=== PATIENT | female | born 1975 | race Caucasian/White ===

== ENCOUNTER 2017-08-20 08:10 | Emergency (ER) | payer OTHER ==
[2017-08-20 08:28] VITALS: BP 141/95; BMI 32.3
--- NOTE | 2017-08-20 09:13 | DR.GENAD ---
HPI - PCP Primary Care Physician: nfd - Complaint/Symptoms Chief Complaint Doctors Comments: Patient gives a history of migraine headache her pcp call in a prescription for migraine on yesterday but she has note been able to keep anything down. She admits to post traumatic headache due to head trauma several years ago. Chief Complaint:: patient stated she has had a headache for a week and then she started vomiting last night and she cant hold her meds down. - Source History Provided: Patient - Mode of Arrival Mode of Arrival: Ambulatory - Timing Onset of Chief Complaint: 08/13/17 PMH - PMH Past Medical History: No Past Surgical History: Yes Surgical History: , Hysterectomy - Family History History of Family Medical Conditions: No - Social History Does patient currently use any type of tobacco product: Yes Have you used tobacco products in the last 12 months: Yes Type of Tobacco Use: Cigarettes How many years tobacco product used: 20 Does any household member use tobacco: Yes Alcohol Use: None Do you use any recreational Drugs:: No Lives With: Family Lives Where: Home - infectious screening In the last 2 months have you had wt loss of >10#?: NO Have you had fever, night sweats or hemotysis?: No Have you traveled outside the country in the last 6 months?: No Isolation: Standard ROS - Review of Systems Constitutional: No Symptoms Reported Eyes: No Symptoms Reported ENTM: No Symptoms Reported Respiratoy: No Symptoms Reported Cardiovascular: No Symptoms Reported Gastrointestinal/Abdominal: Vomiting Genitourinary: No Symptoms Reported Neurological: No Symptoms Reported Musculoskeletal: No Symptoms Reported Integumentary: No Symptoms Reported Hematologic/Lymphatic: No Symptoms Reported Endocrine: No Symptoms Reported Psychiatric: No Symptoms Reported All Other Systems: Reviewed and Negative PE - Vital Signs Vitals: Temperature 98.9 F Pulse Rate 102 Respiratory Rate 18 Blood Pressure 141/95 O2 Sat by Pulse Oximetry 97 - General Limitations: No Limitations General Appearance: Alert, Anxious - Head Head Exam: Normal Inspection, Atraumatic - Eyes Eye exam: Normal Appearance, PERRL, EOMI - ENT ENT Exam: Normal Exam, Mucous Membranes Dry External Ear Exam: Normal External Inspection TM/Canal Exam: Bilateral Normal Nose Exam: Normal Nose Exam Mouth Exam: Normal Inspection Throat Exam: Normal Inspection - Neck Neck Exam: Normal Inspection, Full ROM - Chest Chest Inspection: Normal Inspection - Respiratory Respiratory Exam: Normal Lung Sounds Bilat Respiratory Exam: Bilateral Clear to Auscultation - Cardiovascular Cardiovascular Exam: Regular Rate, Normal Rhythm - Abdominal Exam Abdominal Exam: Normal Inspection, Normal Bowel Sounds Abdominal Tenderness: negative: RUQ, RLQ, LUQ, LLQ, Epigastrium, Suprapubic, Diffuse, Mild, Moderate, Severe, Other - Extremities Extremities Exam: Normal Inspection, Full ROM - Back Back Exam: Normal Inspection, Full ROM - Neurologic Neurological Exam: Alert, Oriented X3, CN II-XII Intact - Psychiatric Psychiatric Exam: Normal Affect - Skin Skin Exam: Warm, Dry, Intact Course - Treatment Treatment: Antiemetics, NS, analgesic - Reevaluation 1st: Improved ROR - Labs Reviewed Laboratory Results Reviewed?: Yes (UA negative) Result Diagrams: 08/20/17 09:23 08/20/17 09: Laboratory: WBC 11.9 X10^3/uL (3.6-10.0) H 08/20/17 09: RBC 4.87 X10^6/uL (3.5-5.4) 08/20/17 09: Hgb 13.9 g/dL (12.0-16.0) 08/20/17 09: Hct 40.0 % (36.0-47.0) 08/20/17 09: MCV 82.3 fL (80.0-100.0) 08/20/17 09:23 MCH 28.5 pg (27.0-34.0) 08/20/17 09: MCHC 34.6 g/dL (33.0-35.0) 08/20/17 09: RDW 13.4 % (11.6-16.5) 08/20/17 09: Plt Count 303 X10^3/uL (150.0-450.0) 08/20/17 09: MPV 7.4 fL (7.4-11.0) 08/20/17 09: Neut % 77.0 % (42.0-75.0) H 08/20/17 09:23 Lymph % 19.1 % (21.0-51.0) L 08/20/17 09:23 [place] % 3.4 % (0.0-13.0) 08/20/17 09: Eos % 0.0 % (0.9-2.9) L 08/20/17 09:23 Baso % 0.5 % (0.2-1.0) 08/20/17 09: Neut # 9.2 x10^3/uL (2.2-4.8) H 08/20/17 09:23 Lymph # 2.3 X10^3/uL (1.3-2.9) 08/20/17 09:23 [place] # 0.4 x10^3/uL (0.3-0.8) 08/20/17 09:23 Eos # 0.0 x10^3/uL (0.0-0.2) 08/20/17 09: Baso # 0.1 X10^3/uL (0.0-0.1) 08/20/17 09:23 Absolute Nucleated RBC 0.0 /100WBC 08/20/17 09:23 Sodium 140 mmol/L (136-145) 08/20/17 09:23 Corrected Sodium 141 mmol/L (136-145) 08/20/17 09:23 Potassium 3.9 mmol/L (3.5-5.1) 08/20/17 09:23 Chloride 103 mmol/L (98-107) 08/20/17 09:23 Carbon Dioxide 24.4 mmol/L (21-32) 08/20/17 09:23 BUN 12 mg/dL (7-18) 08/20/17 09:23 Creatinine 0.81 mg/dL (0.55-1.02) 08/20/17 09:23 Est GFR (MDRD) Af Amer > 60 (>60) 08/20/17 09:23 Est GFR (MDRD) Non-Af > 60 (>60) 08/20/17 09:23 Glucose 121 mg/dL (65-99) H 08/20/17 09:23 Calcium 9.3 mg/dL (8.5-10.1) 08/20/17 09:23 Corrected Calcium TNP 08/20/17 09:23 Total Bilirubin 0.40 mg/dL (0.2-1.0) 08/20/17 09:23 AST 17 Units/L (15-37) 08/20/17 09:23 ALT 27 Units/L (12-78) 08/20/17 09:23 Alkaline Phosphatase 101 Units/L (46-116) 08/20/17 09:23 C-Reactive Protein 3.40 mg/L (0-3.0) H 08/20/17 09:23 Total Protein 7.9 g/dL (6.4-8.2) 08/20/17 09:23 Albumin 4.0 g/dL (3.4-5.0) 08/20/17 09: Globulin 3.9 g/dL (2.5-4.5) 08/20/17 09:23 Albumin/Globulin Ratio 1.0 Ratio (1.1-2.1) L 08/20/17 09:23 Specimen Type Clean catch urine 08/20/17 11:30 Urine Color Yellow (YELLOW) 08/20/17 11:30 Urine Appearance Hazy (CLEAR) 08/20/17 11:30 Urine pH 7.0 (5.0 - 8.0) 08/20/17 11:30 Ur Specific [place] 1.020 (1.000-1.030) 08/20/17 11:30 Urine Protein 2+ (NEGATIVE) 08/20/17 11:30 Urine Glucose (UA) Negative (NEGATIVE) 08/20/17 11:30 Urine Ketones 2+ (NEGATIVE) 08/20/17 11:30 Urine Occult Blood 1+ (NEGATIVE) 08/20/17 11:30 Urine Nitrite Negative (NEGATIVE) 08/20/17 11:30 Urine Bilirubin Negative (NEGATIVE) 08/20/17 11:30 Urine Urobilinogen Normal (NORMAL) 08/20/17 11:30 Ur Leukocyte Esterase Negative (NEGATIVE) 08/20/17 11:30 Urine RBC 0 /HPF (NEGATIVE) 08/20/17 11:30 Urine WBC 0-3 /HPF (NEGATIVE) 08/20/17 11:30 Ur Squamous Epith Cells Rare /HPF (NEGATIVE) 08/20/17 11:30 Urine Bacteria Trace /HPF (NEGATIVE) 08/20/17 11:30 Urine Mucus Few /HPF (NEGATIVE) 08/20/17 11:30 Ur Culture Indicated? No/not indicated 08/20/17 11:30 Streptococcus Screen Negative (NEGATIVE) 08/20/17 09:39 - Diagnosis Discharge Problem: Viral illness Headache Qualifiers: Headache type: post-traumatic Headache chronicity pattern: chronic headache Intractability: not intractable Qualified Code(s): G44.329 - Chronic post- traumatic headache, not intractable - Discharge Plan Condition: Stable - Follow ups/Referrals Follow ups/Referrals: NFD,None [Primary Care Provider] - 3 days - Instructions
[2017-08-20] MEDS ORDERED: NS 1000 ML 1,000 ML IV ONE ×2 (09:14→11:25)
[2017-08-20] MEDS ORDERED: PHENERGAN INJ 25 MG IV ONE (09:14)
[2017-08-20] MEDS ORDERED: MORPHINE SULFATE INJ 4 MG IVP ONE (09:17)
[2017-08-20] MEDS ORDERED: NS 1000 ML 1,000 ML ONE (09:18)
[2017-08-20] MEDS ORDERED: MORPHINE SULFATE INJ 4 MG ONE (09:19)
[2017-08-20] MEDS ORDERED: PHENERGAN INJ 25 MG ONE (09:19)
[2017-08-20 09:28] LABS: BASOPHILS # (AUTO) 0.1 X10^3/uL (0.0-0.1); BASOPHILS % (AUTO) 0.5 % (0.2-1.0); HEMOGLOBIN 13.9 g/dL (12.0-16.0); LYMPHOCYTES # (AUTO) 2.3 X10^3/uL (1.3-2.9); LYMPHOCYTES % (AUTO) 19.1 % (21.0-51.0); MEAN CORPUSCULAR HEMOGLOBIN 28.5 pg (27.0-34.0); MEAN CORPUSCULAR HGB CONC 34.6 g/dL (33.0-35.0); MEAN CORPUSCULAR VOLUME 82.3 fL (80.0-100.0); MEAN PLATELET VOLUME 7.4 fL (7.4-11.0); MONOCYTES # (AUTO) 0.4 x10^3/uL (0.3-0.8); MONOCYTES % (AUTO) 3.4 % (0.0-13.0); NEUTROPHILS # (AUTO) 9.2 x10^3/uL (2.2-4.8); PLATELET COUNT 303 X10^3/uL (150.0-450.0); RED BLOOD COUNT 4.87 X10^6/uL (3.5-5.4); RED CELL DISTRIBUTION WIDTH 13.4 % (11.6-16.5); WHITE BLOOD COUNT 11.9 X10^3/uL (3.6-10.0)
[2017-08-20 09:39] LABS: ALANINE AMINOTRANSFERASE 27 Units/L (12-78); ALKALINE PHOSPHATASE 101 Units/L (46-116); ASPARTATE AMINO TRANSFERASE 17 Units/L (15-37); BLOOD UREA NITROGEN 12 mg/dL (7-18); CALCIUM 9.3 mg/dL (8.5-10.1); CARBON DIOXIDE 24.4 mmol/L (21-32); CHLORIDE 103 mmol/L (98-107); COR NA(FOR HYPERGLY) 141 mmol/L (136-145); CREATININE 0.81 mg/dL (0.55-1.02); SODIUM 140 mmol/L (136-145); TOTAL PROTEIN 7.9 g/dL (6.4-8.2); eGFR BLACK RACES > 60 (>60); eGFR NON BLACK RACES > 60 (>60)
[2017-08-20] MEDS ORDERED: REGLAN INJ 10 MG VIAL IVP ONE (10:37)
[2017-08-20] MEDS ORDERED: MORPHINE SULFATE INJ 2 MG INJ IVP ONE (10:38)
[2017-08-20] MEDS ORDERED: REGLAN INJ 10 MG VIAL ONE (10:41)
[2017-08-20] MEDS ORDERED: MORPHINE SULFATE INJ 2 MG INJ ONE (10:41)
[2017-08-20 11:37] LABS: BILIRUBIN,URINE NEGATIVE (NEGATIVE); BLOOD/HEMOGLOBIN,URINE 1+ (NEGATIVE); GLUCOSE, URINE NEGATIVE (NEGATIVE); KETONES,URINE 2+ (NEGATIVE); LEUKOCYTE ESTERASE ,URINE NEGATIVE (NEGATIVE); NITRITES,URINE NEGATIVE (NEGATIVE); PROTEIN,URINE 2+ (NEGATIVE); UROBILINOGEN,URINE NORMAL (NORMAL)
[2017-08-20 11:46] LABS: APPEARANCE,URINE HAZY (CLEAR); BACTERIA,URINE TRACE /HPF (NEGATIVE); COLOR,URINE YELLOW (YELLOW); MUCUS,URINE FEW /HPF (NEGATIVE); RBC,URINE 0 /HPF (NEGATIVE); SQUAMOUS EPITHELIAL CELL,UR RARE /HPF (NEGATIVE)
== END 2017-08-20 12:21 | disposition home or self-care (01) ==
LOC: ER 08:18
DX: G44.329 Chronic post-traumatic headache, not intractable (principal); B34.9 Viral infection, unspecified
CPT/HCPCS: 36415; 80053; 81001; 85025; 86140; 87070; 87880; 96365; 96367; 96374; 96375; 99283; A4222; J2270; J2550; J2765

== ENCOUNTER 2017-11-08 09:42 | Emergency (ER) | payer OTHER, MEDICAID ==
[2017-11-08 09:50] VITALS: BP 136/101; BMI 33.2
--- NOTE | 2017-11-08 10:23 | DR.URIAD ---
HPI - Time Seen Time seen: 10:20 - PCP Primary Care Physician: AUDREY Le ROVING HAND - Complaint Chief Complaint Doctors Comments: Patient presents with complaint of sore throat , dysphagia, left otalgia and toothache of two days duration. Chief Complaint:: PT C/O CONGESTION, LEFT EAR PAIN AND LEFT THROAT PAIN TIMES 3 DAYS AND LEFT TOOTH PAIN". Self Treatment fo Chief Complaint: MOTRIN , DAYQUIL. - Source History Provided: Patient - Mode of Arrival Mode of Arrival: Ambulatory - Timing Onset of Chief Complaint: 11/06/17 PMH - PMH Past Medical History: Yes Past Medical History Comment: MENTAL HEALTH, OCD, PTSD, ANXIETY, Past Surgical History: Yes Surgical History: , Cholecystectomy, Hysterectomy - Family History History of Family Medical Conditions: No - Social History Does patient currently use any type of tobacco product: Yes Have you used tobacco products in the last 12 months: Yes Type of Tobacco Use: Cigarettes How many years tobacco product used: 20 Does any household member use tobacco: No Alcohol Use: None Do you use any recreational Drugs:: No Lives With: Alone Lives Where: Home - infectious screening In the last 2 months have you had wt loss of >10#?: NO Have you had fever, night sweats or hemotysis?: No Have you traveled outside the country in the last 6 months?: No Isolation: Standard ROS - Review of Systems Eyes: No Symptoms Reported ENTM: No Symptoms Reported Respiratoy: No Symptoms Reported Cardiovascular: No Symptoms Reported Gastrointestinal/Abdominal: No Symptoms Reported Genitourinary: No Symptoms Reported Neurological: No Symptoms Reported Musculoskeletal: No Symptoms Reported Integumentary: No Symptoms Reported Hematologic/Lymphatic: No Symptoms Reported Endocrine: No Symptoms Reported Psychiatric: No Symptoms Reported All Other Systems: Reviewed and Negative PE - Vital Signs Vitals: Temperature 97.1 F Pulse Rate 73 Respiratory Rate 18 Blood Pressure 136/101 O2 Sat by Pulse Oximetry 98 - General General Appearance: Alert, In No Apparent Distress - Head Head Exam: Normal Inspection - Eyes Eye exam: Normal Appearance, PERRL, EOMI - ENT ENT Exam: Normal Exam, Normal Oropharynx, TM's Normal Bilaterally (right canal erythematous, TM red) External Ear Exam: Normal External Inspection TM/Canal Exam: Bilateral Normal Nose Exam: Normal Nose Exam Nasal Speculum Exam: Bilateral Normal Mouth Exam: Normal Inspection Throat Exam: Normal Inspection. negative: Muffled Voice - Neck Neck Exam: Normal Inspection, Full ROM, Tenderness (left anter cervical at angle of jaw) - Chest Chest Inspection: Symmetric Chest Wall Rise - Respiratory Respiratory Exam: Normal Lung Sounds Bilat Respiratory Exam: Bilateral Clear to Auscultation - Cardiovascular Cardiovascular Exam: Regular Rate, Normal Rhythm - Abdominal Exam Abdominal Exam: Normal Inspection, Normal Bowel Sounds Abdominal Tenderness: negative: RUQ, RLQ, LUQ, LLQ, Epigastrium, Suprapubic, Diffuse, Mild, Moderate, Severe, Other - Extremeties Extremities Exam: Normal Inspection, Full ROM - Back Back Exam: Normal Inspection, Full ROM - Neurologic Neurological Exam: Alert, Oriented X3, CN II-XII Intact - Psychiatric Psychiatric Exam: Normal Affect, Normal Mood - Skin Skin Exam: Warm, Dry, Intact ROR - Labs Reviewed Laboratory: Streptococcus Screen Negative (NEGATIVE) 11/08/17 10:33 - Diagnosis Discharge Problem: Right otitis media Qualifiers: Otitis media type: suppurative Chronicity: acute Recurrence: not specified as recurrent Spontaneous tympanic membrane rupture: without spontaneous rupture Qualified Code(s): H66.001 - Acute suppurative otitis media without spontaneous rupture of ear drum, right ear Pharyngitis Qualifiers: Pharyngitis/tonsillitis etiology: other specified organisms Qualified Code(s): J02.8 - Acute pharyngitis due to other specified organisms - Discharge Plan Condition: Stable - Follow ups/Referrals Follow ups/Referrals: SUSANA VENTURA [Primary Care Provider] - 3 days - Instructions
== END 2017-11-08 11:23 | disposition home or self-care (01) ==
LOC: ER 09:56
DX: H66.001 Acute suppurative otitis media without spontaneous rupture of ear drum, right ear (principal); J02.8 Acute pharyngitis due to other specified organisms
CPT/HCPCS: 87070; 87077; 87186; 87880; 99282

== ENCOUNTER 2017-11-15 18:13 | Emergency (ER) | payer OTHER, MEDICAID ==
[2017-11-15 18:16] VITALS: BMI 33.3
--- NOTE | 2017-11-15 18:39 | DR.GENAD ---
HPI - PCP Primary Care Physician: AUDREY - HPI Comment HPI Comment: SWELLING, PAIN LATERAL HAND AND SMALL FINGER. PULSES INTACT. - Complaint/Symptoms Chief Complaint Doctors Comments: PUNCH MAIL BOX TONCESIA. Chief Complaint:: PT C/O RT HAND PAIN. PT STATES SHE PUNCHED A MAILBOX APPROX 15 MINS AGO. - Nurses notes reviewed Nurses Notes Review: Yes - Source History Provided: Patient - Mode of Arrival Mode of Arrival: Ambulatory - Timing Onset of Chief Complaint: 11/15/17 Came on: Suddenly - Duration Duration: Constant Duration: Hours - Severity Severity: Moderate PMH - PMH Past Medical History: Yes Past Medical History: Hypertension Past Medical History Comment: MENTAL HEALTH Past Surgical History: Yes Surgical History: , Cholecystectomy, Hysterectomy - Family History History of Family Medical Conditions: No - Social History Does patient currently use any type of tobacco product: Yes Have you used tobacco products in the last 12 months: Yes Type of Tobacco Use: Cigarettes Does any household member use tobacco: Yes Alcohol Use: None Do you use any recreational Drugs:: No Lives With: Family Lives Where: Home - infectious screening In the last 2 months have you had wt loss of >10#?: NO Have you had fever, night sweats or hemotysis?: No Have you traveled outside the country in the last 6 months?: No Isolation: Standard ROS - Review of Systems Constitutional: No Symptoms Reported Eyes: No Symptoms Reported ENTM: No Symptoms Reported Respiratoy: No Symptoms Reported Cardiovascular: No Symptoms Reported Gastrointestinal/Abdominal: No Symptoms Reported Genitourinary: No Symptoms Reported Neurological: No Symptoms Reported Musculoskeletal: Right, Hand Integumentary: Change in Color, Bruises Hematologic/Lymphatic: No Symptoms Reported Endocrine: No Symptoms Reported All Other Systems: Reviewed and Negative PE - Vital Signs Vitals: Temperature 98.0 F Pulse Rate [Left Brachial] 72 Pulse Rate 101 Respiratory Rate 18 Blood Pressure [Left Arm] 138/96 Blood Pressure 147/105 O2 Sat by Pulse Oximetry 99 - General Limitations: No Limitations General Appearance: Alert - Head Head Exam: Normal Inspection - Eyes Eye exam: Normal Appearance - ENT ENT Exam: Normal External Ear Exam External Ear Exam: Normal External Inspection TM/Canal Exam: Bilateral Normal Nose Exam: Normal Nose Exam Mouth Exam: Normal Inspection Throat Exam: Normal Inspection - Neck Neck Exam: Trachea Midline - Chest Chest Inspection: Symmetric Chest Wall Rise - Respiratory Respiratory Exam: Normal Lung Sounds Bilat Respiratory Exam: Bilateral Clear to Auscultation - Cardiovascular Cardiovascular Exam: Regular Rate, Normal Rhythm, Normal Heart Sounds - Abdominal Exam Abdominal Exam: Normal Inspection - Extremities Extremities Exam: Tenderness (RIGHT HAND SWOLLEN AND TENDER LATERAL ASPECT WITH 5TH FINGER.) - Back Back Exam: Normal Inspection - Neurologic Neurological Exam: Alert, Oriented X3 - Psychiatric Psychiatric Exam: Normal Affect, Normal Mood - Skin Skin Exam: Erythema MDM - Differential Diagnosis Differential Diagnosis: CONTUSION, SPRAIN AND FRACTURE RT FINGER. - Diagnosis Discharge Problem: Intermetacarpal ligament injury - Discharge Plan Disposition: 01 HOME, SELF-CARE Condition: Stable Prescriptions: Acetaminophen with Codeine [Tylenol/Codeine #3 300-30 mg] 1 tab PO Q4-6H PRN # 12 tab PRN Reason: Pain - Follow ups/Referrals Follow ups/Referrals: SUSANA VENTURA [Primary Care Provider] - 1 day - Instructions Instructions: Intermetacarpal Sprain Additional Instructions: RETURN TO ED IF WORSE.
--- NOTE | 2017-11-15 18:51 | RAD ---
Examination: Right hand, three views History: Pain 5th metacarpal Findings: No definite fracture, dislocation or articular deformity. Impression: No recent injury demonstrated. Reported By:
[2017-11-15 19:17] VITALS: BP 138/96
== END 2017-11-15 19:17 | disposition home or self-care (01) ==
LOC: ER 18:20
DX: S63.639A Sprain of interphalangeal joint of unspecified finger, initial encounter (principal); X58.XXXA Exposure to other specified factors, initial encounter; Y92.9 Unspecified place or not applicable
CPT/HCPCS: 73130; 99282

== ENCOUNTER 2017-11-27 16:39 | Emergency (ER) | payer OTHER, MEDICAID ==
[2017-11-27 16:57] VITALS: BP 141/94; BMI 32.9
--- NOTE | 2017-11-27 17:38 | DR.GENAD ---
HPI - PCP Primary Care Physician: SUSANA VENTURA - Complaint/Symptoms Chief Complaint Doctors Comments: Patient reports vomiting x3 since last night and has a migraine headache. Denies fever or diarrhea, Denies myagia. Chief Complaint:: PT STATES SHE HAS BEEN VOMITTING SINCE LAST NIGHT. STATES MIGRAINE STARTED LAST NIGHT. Self Treatment fo Chief Complaint: PT STATES SHE TRIED TAKING PHENERGAN AND IBUPROFEN BUT CANNOT KEEP MEDICINE DOWN - Source History Provided: Patient - Mode of Arrival Mode of Arrival: Ambulatory - Timing Onset of Chief Complaint: 11/26/17 PMH - PMH Past Medical History: No Past Medical History: Hypertension Past Surgical History: Yes Surgical History: , Cholecystectomy, Hysterectomy Past Surgical History Comment: LEFT EAR SURGERY - Family History History of Family Medical Conditions: Yes Family Medical History: Cancer - Social History Does patient currently use any type of tobacco product: Yes Have you used tobacco products in the last 12 months: Yes Type of Tobacco Use: Cigarettes Does any household member use tobacco: Yes Alcohol Use: None Do you use any recreational Drugs:: No Lives With: Significant Other Lives Where: Home - infectious screening In the last 2 months have you had wt loss of >10#?: NO Have you had fever, night sweats or hemotysis?: No Have you traveled outside the country in the last 6 months?: No Isolation: Standard ROS - Review of Systems Eyes: No Symptoms Reported ENTM: No Symptoms Reported Respiratoy: No Symptoms Reported Cardiovascular: No Symptoms Reported Gastrointestinal/Abdominal: No Symptoms Reported Genitourinary: No Symptoms Reported Neurological: Headache (migraine) Musculoskeletal: No Symptoms Reported Integumentary: No Symptoms Reported Hematologic/Lymphatic: No Symptoms Reported Endocrine: No Symptoms Reported Psychiatric: No Symptoms Reported All Other Systems: Reviewed and Negative PE - Vital Signs Vitals: Temperature 98 F Pulse Rate 83 Respiratory Rate 20 Blood Pressure [Left Arm] 138/96 Blood Pressure 141/94 O2 Sat by Pulse Oximetry 96 - General General Appearance: Alert, In No Apparent Distress - Head Head Exam: Normal Inspection, Atraumatic - Eyes Eye exam: Normal Appearance, PERRL, EOMI - ENT ENT Exam: Normal Exam External Ear Exam: Normal External Inspection TM/Canal Exam: Bilateral Normal Nose Exam: Normal Nose Exam Mouth Exam: Normal Inspection Throat Exam: Normal Inspection - Neck Neck Exam: Normal Inspection - Chest Chest Inspection: Normal Inspection - Respiratory Respiratory Exam: Normal Lung Sounds Bilat Respiratory Exam: Bilateral Clear to Auscultation - Cardiovascular Cardiovascular Exam: Regular Rate, Normal Rhythm - Abdominal Exam Abdominal Exam: Normal Inspection, Normal Bowel Sounds Abdominal Tenderness: negative: RUQ, RLQ, LUQ, LLQ, Epigastrium, Suprapubic, Diffuse, Mild, Moderate, Severe, Other - Extremities Extremities Exam: Normal Inspection, Full ROM - Back Back Exam: Normal Inspection, Full ROM - Neurologic Neurological Exam: Alert, Oriented X3, CN II-XII Intact - Psychiatric Psychiatric Exam: Normal Affect, Normal Mood - Skin Skin Exam: Warm, Dry, Intact Course - Reevaluation 1st: Improved - Education/Counseling Educated On: Treatment, Diagnosis, Prognosis, Needs for Follow Up ROR - Labs Reviewed Result Diagrams: 11/27/17 18:10 11/27/17 18:10 Laboratory: WBC 10.2 X10^3/uL (3.6-10.0) H 11/27/17 18:10 RBC 4.92 X10^6/uL (3.5-5.4) 11/27/17 18:10 Hgb 14.0 g/dL (12.0-16.0) 11/27/17 18:10 Hct 39.9 % (36.0-47.0) 11/27/17 18:10 MCV 81.2 fL (80.0-100.0) 11/27/17 18:10 MCH 28.5 pg (27.0-34.0) 11/27/17 18:10 MCHC 35.1 g/dL (33.0-35.0) H 11/27/17 18:10 RDW 13.6 % (11.6-16.5) 11/27/17 18:10 Plt Count 309 X10^3/uL (150.0-450.0) 11/27/17 18:10 MPV 8.3 fL (7.4-11.0) 11/27/17 18:10 Neut % 61.5 % (42.0-75.0) 11/27/17 18:10 Lymph % 30.0 % (21.0-51.0) 11/27/17 18:10 [place] % 5.7 % (0.0-13.0) 11/27/17 18:10 Eos % 1.9 % (0.9-2.9) 11/27/17 18:10 Baso % 0.9 % (0.2-1.0) 11/27/17 18:10 Neut # 6.3 x10^3/uL (2.2-4.8) H 11/27/17 18:10 Lymph # 3.1 X10^3/uL (1.3-2.9) H 11/27/17 18:10 [place] # 0.6 x10^3/uL (0.3-0.8) 11/27/17 18:10 Eos # 0.2 x10^3/uL (0.0-0.2) 11/27/17 18:10 Baso # 0.1 X10^3/uL (0.0-0.1) 11/27/17 18:10 Absolute Nucleated RBC 0.0 /100WBC 11/27/17 18:10 Sodium 140 mmol/L (136-145) 11/27/17 18:10 Corrected Sodium TNP 11/27/17 18:10 Potassium 3.6 mmol/L (3.5-5.1) 11/27/17 18:10 Chloride 105 mmol/L (98-107) 11/27/17 18:10 Carbon Dioxide 25.7 mmol/L (21-32) 11/27/17 18:10 BUN 12 mg/dL (7-18) 11/27/17 18:10 Creatinine 0.74 mg/dL (0.55-1.02) 11/27/17 18:10 Est GFR (MDRD) Af Amer > 60 (>60) 11/27/17 18:10 Est GFR (MDRD) Non-Af > 60 (>60) 11/27/17 18:10 Glucose 105 mg/dL (65-99) H 11/27/17 18:10 Calcium 8.5 mg/dL (8.5-10.1) 11/27/17 18:10 Corrected Calcium TNP 11/27/17 18:10 Total Bilirubin 0.30 mg/dL (0.2-1.0) 11/27/17 18:10 AST 12 Units/L (15-37) L 11/27/17 18:10 ALT 21 Units/L (12-78) 11/27/17 18:10 Alkaline Phosphatase 96 Units/L (46-116) 11/27/17 18:10 Total Protein 7.5 g/dL (6.4-8.2) 11/27/17 18:10 Albumin 3.6 g/dL (3.4-5.0) 11/27/17 18:10 Globulin 3.9 g/dL (2.5-4.5) 11/27/17 18:10 Albumin/Globulin Ratio 0.9 Ratio (1.1-2.1) L 11/27/17 18:10 Specimen Type Clean catch urine 11/27/17 18:42 Urine Color [place]z (YELLOW) 11/27/17 18:42 Urine Appearance Slightly hazy (CLEAR) 11/27/17 18:42 Urine pH 8.0 (5.0 - 8.0) 11/27/17 18:42 Ur Specific [place] 1.010 (1.000-1.030) 11/27/17 18:42 Urine Protein 2+ (NEGATIVE) 11/27/17 18:42 Urine Glucose (UA) Negative (NEGATIVE) 11/27/17 18:42 Urine Ketones Negative (NEGATIVE) 11/27/17 18:42 Urine Occult Blood Negative (NEGATIVE) 11/27/17 18:42 Urine Nitrite Negative (NEGATIVE) 11/27/17 18:42 Urine Bilirubin Negative (NEGATIVE) 11/27/17 18:42 Urine Urobilinogen 1+ (NORMAL) 11/27/17 18:42 Ur Leukocyte Esterase 1+ (NEGATIVE) 11/27/17 18:42 Urine RBC Negative /HPF (NEGATIVE) 11/27/17 18:42 Urine WBC 1 - 2 /HPF (NEGATIVE) 11/27/17 18:42 Ur Squamous Epith Cells Many /HPF (NEGATIVE) 11/27/17 18:42 Urine Bacteria Negative /HPF (NEGATIVE) 11/27/17 18:42 Ur Culture Indicated? No/not indicated 11/27/17 18:42 - Diagnosis Discharge Problem: Migraine headache Qualifiers: Migraine type: without aura Status migrainosus presence: without status migrainosus Intractability: not intractable Qualified Code(s): G43.009 - Migraine without aura, not intractable, without status migrainosus - Discharge Plan Condition: Stable - Follow ups/Referrals Follow ups/Referrals: NFD,None [Primary Care Provider] - 3 days - Instructions
[2017-11-27] MEDS ORDERED: NS 1000 ML 1,000 ML IV ONE (17:42)
[2017-11-27] MEDS ORDERED: ZOFRAN INJ 4 MG VIAL IVP ONE (17:43)
[2017-11-27] MEDS ORDERED: MORPHINE SULFATE INJ 4 MG IVP ONE (17:45)
[2017-11-27] MEDS ORDERED: ZOFRAN INJ 4 MG VIAL ONE (17:54)
[2017-11-27] MEDS ORDERED: NS 1000 ML 1,000 ML ONE (17:54)
[2017-11-27] MEDS ORDERED: MORPHINE SULFATE INJ 4 MG ONE (17:55)
[2017-11-27 18:23] LABS: BASOPHILS # (AUTO) 0.1 X10^3/uL (0.0-0.1); BASOPHILS % (AUTO) 0.9 % (0.2-1.0); EOSINOPHILS # (AUTO) 0.2 x10^3/uL (0.0-0.2); EOSINOPHILS % (AUTO) 1.9 % (0.9-2.9); HEMATOCRIT 39.9 % (36.0-47.0); LYMPHOCYTES # (AUTO) 3.1 X10^3/uL (1.3-2.9); MEAN CORPUSCULAR HEMOGLOBIN 28.5 pg (27.0-34.0); MEAN CORPUSCULAR HGB CONC 35.1 g/dL (33.0-35.0); MEAN CORPUSCULAR VOLUME 81.2 fL (80.0-100.0); MEAN PLATELET VOLUME 8.3 fL (7.4-11.0); MONOCYTES # (AUTO) 0.6 x10^3/uL (0.3-0.8); MONOCYTES % (AUTO) 5.7 % (0.0-13.0); NEUTROPHILS # (AUTO) 6.3 x10^3/uL (2.2-4.8); NEUTROPHILS % (AUTO) 61.5 % (42.0-75.0); PLATELET COUNT 309 X10^3/uL (150.0-450.0); RED BLOOD COUNT 4.92 X10^6/uL (3.5-5.4); RED CELL DISTRIBUTION WIDTH 13.6 % (11.6-16.5); WHITE BLOOD COUNT 10.2 X10^3/uL (3.6-10.0)
[2017-11-27 18:31] LABS: ALANINE AMINOTRANSFERASE 21 Units/L (12-78); ALBUMIN 3.6 g/dL (3.4-5.0); ALKALINE PHOSPHATASE 96 Units/L (46-116); ASPARTATE AMINO TRANSFERASE 12 Units/L (15-37); BLOOD UREA NITROGEN 12 mg/dL (7-18); CALCIUM 8.5 mg/dL (8.5-10.1); CARBON DIOXIDE 25.7 mmol/L (21-32); CHLORIDE 105 mmol/L (98-107); CREATININE 0.74 mg/dL (0.55-1.02); SODIUM 140 mmol/L (136-145); TOTAL PROTEIN 7.5 g/dL (6.4-8.2); eGFR BLACK RACES > 60 (>60); eGFR NON BLACK RACES > 60 (>60)
[2017-11-27 18:50] LABS: BILIRUBIN,URINE NEGATIVE (NEGATIVE); BLOOD/HEMOGLOBIN,URINE NEGATIVE (NEGATIVE); GLUCOSE, URINE NEGATIVE (NEGATIVE); KETONES,URINE NEGATIVE (NEGATIVE); LEUKOCYTE ESTERASE ,URINE 1+ (NEGATIVE); NITRITES,URINE NEGATIVE (NEGATIVE); PROTEIN,URINE 2+ (NEGATIVE); UROBILINOGEN,URINE 1+ (NORMAL)
[2017-11-27 18:53] LABS: APPEARANCE,URINE SLIGHTLY HAZY (CLEAR); COLOR,URINE AMBER (YELLOW)
[2017-11-27 18:57] LABS: BACTERIA,URINE NEGATIVE /HPF (NEGATIVE); RBC,URINE NEGATIVE /HPF (NEGATIVE); SQUAMOUS EPITHELIAL CELL,UR MANY /HPF (NEGATIVE)
== END 2017-11-27 19:14 | disposition home or self-care (01) ==
LOC: ER 16:52
DX: R11.10 Vomiting, unspecified (principal)
CPT/HCPCS: 36415; 80053; 81001; 85025; 96365; 96374; 96375; 99283; J2270; J2405

== ENCOUNTER 2018-03-30 10:46 | Day surgery (SDC) | payer OTHER, MEDICAID ==
[2018-03-30] MEDS ORDERED: D5 LR 1000 ML 1,000 ML IV ONE (11:25)
[2018-03-30] MEDS ORDERED: DIPRIVAN VIAL 20 ML ONE (11:55)
[2018-03-30 12:45] VITALS: BP 128/87
== END 2018-03-30 12:33 | disposition home or self-care (01) ==
LOC: SURG1 10:46
PROVIDERS: ATTEND Internal Medicine Gastroenterology
PROC: 0DB68ZX Excision of Stomach, Via Natural or Artificial Opening Endoscopic, Diagnostic (ICD-10-PCS; principal; 2018-03-30 16:30)
PROC: 0DJ08ZZ Inspection of Upper Intestinal Tract, Via Natural or Artificial Opening Endoscopic (ICD-10-PCS; principal; 2018-03-30 16:30)
PROC: 0DB88ZX Excision of Small Intestine, Via Natural or Artificial Opening Endoscopic, Diagnostic (ICD-10-PCS; principal; 2018-03-30 16:30)
DX: R10.13 Epigastric pain (principal); R11.2 Nausea with vomiting, unspecified; K21.9 Gastro-esophageal reflux disease without esophagitis; K22.10 Ulcer of esophagus without bleeding; K20.8 Other esophagitis; K29.60 Other gastritis without bleeding
CPT/HCPCS: A4217; J3490; J7120

== ENCOUNTER 2022-03-16 15:53 | Observation (INO) ==
--- NOTE | 2022-03-16 17:12 | DR.H&P ---
H&P - History & Physical for Day of: H&P Date: 03/16/22 - Chief Complaint Chief Complaint: n/v/d, vomiting brown liquid, abdominal pain - History of Present Illness History of Present Illness: PT IS 46WF DIRECT ADMIT FROM DR WHITING OFFICE WITH ABDOMINAL PAIN, DISTENTION, N/V/D. PT WAS SEEN IN ER 3 WEEKS AGO, HAD CT ABDOMEN AND PELVIS. PT WAS GIVEN FLAGYL AND REGLAN WITHOUT IMPROVEMENT. PT ADMITTED FOR TREATMENT OF ACUTE ILLNESS. - Past Medical History Past Medical History: Anxiety, Arthritis, Dyslipidemia, GERD, Hypertension - Past Surgical History Surgical History: Cholecystectomy, - Family History Family Medical History: Cancer, [place] - Social History Does patient currently use any type of tobacco product: Yes Have you used tobacco products in the last 12 months: Yes Type of Tobacco Use: None Does any household member use tobacco: No Alcohol Use: None Drug Use: None Prescription drug monitoring program results: PDMP reviewed and no concerns identified - Medications Home Medications: naproxen Allergy (Verified 11/08/17 09:45) meperidine [From Demerol] Adverse Reaction (Verified 11/08/17 09:45) - Review of Systems Constitutional: Malaise Eyes: No Symptoms Reported ENT: No Symptoms Reported Respiratory: No Symptoms Reported Cardiovascular: No Symptoms Reported Gastrointestinal: Nausea, Vomiting, Abdominal Pain, Diarrhea Genitourinary: No Symptoms Reported Musculoskeletal: Back Pain Skin: No Symptoms Reported Neurological: No Symptoms Reported - Physical Exam Vital Signs: Blood Pressure [Left Arm] 132/79 Blood Pressure 128/82 Oriented: Normal Eyes: Normal Ear: Normal Nose: Normal Throat: Normal Respiratory: RLL Diminished, LLL Diminished Cardiovascular: Normal : Normal Auscultation: Bowel Sounds: Normal Palpation: Liver Enlarged, Other (DIFFUSE DISTENTION) Tenderness: Diffuse Skin: Decreased [place]urgur Musculoskeletal: Back:Lumbar Psychiatric: Anxiety Affect: Anxious Speech Pattern: Clear, Appropriate - Assessment/Plan (1) Intractable nausea and vomiting Status: Acute Plan: ADMIT, IV ATBX, ADMISSION LABS. ABD SERIES ON ADMISSION. STOOL STUDIES. IV HYDRATION, CLEAR LIQUID. MRI ABD, NPO AFTER MIDNIGHT. VERIFY AND RESUME HOME MEDICATION (2) Liver mass, left lobe Status: Acute (3) Ascites Qualifiers: Ascites type: other type Qualified Code(s): R18.8 - Other ascites Status: Acute (4) Abdominal pain Qualifiers: Abdominal location: generalized Qualified Code(s): R10.84 - Generalized abdominal pain Status: Acute (5) Acute hypokalemia Status: Acute - Allergies Allergies/Adverse Reactions: Allergies Allergy/AdvReac Type Severity Reaction Status Date / Time naproxen Allergy Verified 11/08/17 09:45 meperidine [From Demerol] AdvReac Verified 11/08/17 09:45
[2022-03-16 17:25] VITALS: BMI 37.3
[2022-03-16 17:35] LABS: BASOPHILS % (AUTO) 0.6 % (0.2-1.0); EOSINOPHILS # (AUTO) 0.1 x10^3/uL (0.0-0.2); EOSINOPHILS % (AUTO) 1.8 % (0.9-2.9); HEMOGLOBIN 12.6 g/dL (12.0-16.0); LYMPHOCYTES # (AUTO) 2.3 X10^3/uL (1.3-2.9); LYMPHOCYTES % (AUTO) 38.1 % (21.0-51.0); MEAN CORPUSCULAR HEMOGLOBIN 28.4 pg (27.0-34.0); MEAN CORPUSCULAR HGB CONC 34.9 g/dL (33.0-35.0); MEAN CORPUSCULAR VOLUME 81.5 fL (80.0-100.0); MEAN PLATELET VOLUME 7.5 fL (7.4-11.0); MONOCYTES # (AUTO) 0.4 x10^3/uL (0.3-0.8); MONOCYTES % (AUTO) 6.1 % (0.0-13.0); NEUTROPHILS # (AUTO) 3.2 x10^3/uL (2.2-4.8); NEUTROPHILS % (AUTO) 53.4 % (42.0-75.0); RED BLOOD COUNT 4.42 X10^6/uL (3.5-5.4); RED CELL DISTRIBUTION WIDTH 13.7 % (11.6-16.5); WHITE BLOOD COUNT 6.1 X10^3/uL (3.6-10.0)
[2022-03-16 17:43] LABS: AMMONIA < 10 umol/L (11-32)
[2022-03-16 17:47] LABS: ALANINE AMINOTRANSFERASE 24 Units/L (12-78); ALBUMIN 3.6 g/dL (3.4-5.0); ALKALINE PHOSPHATASE 78 Units/L (46-116); ASPARTATE AMINO TRANSFERASE 18 Units/L (15-37); BLOOD UREA NITROGEN 9 mg/dL (7-18); CARBON DIOXIDE 27.7 mmol/L (21-32); CHLORIDE 103 mmol/L (98-107); CREATININE 0.92 mg/dL (0.55-1.02); SODIUM 139 mmol/L (136-145); TOTAL PROTEIN 7.2 g/dL (6.4-8.2); eGFR NON BLACK RACES > 60 (>60)
[2022-03-16 17:51] LABS: AMYLASE 23 Units/L (25-115); LIPASE 77 Units/L (73-393)
[2022-03-16] MEDS: NS 1,000 ML IV 1,000 ML IV SCH (18:13)
[2022-03-16] MEDS: ZOFRAN INJ 4 MG VIAL IVP PRN (18:15)
[2022-03-16] MEDS: PROTONIX INJ 40 MG VIAL IVP SCH ×2 (18:15→20:50)
[2022-03-16 19:46] LABS: BILIRUBIN,URINE NEGATIVE (NEGATIVE); BLOOD/HEMOGLOBIN,URINE NEGATIVE (NEGATIVE); GLUCOSE, URINE NEGATIVE (NEGATIVE); KETONES,URINE NEGATIVE (NEGATIVE); LEUKOCYTE ESTERASE ,URINE NEGATIVE (NEGATIVE); NITRITES,URINE NEGATIVE (NEGATIVE); PH,URINE 6.5 (5.0 - 8.0); PROTEIN,URINE NEGATIVE (NEGATIVE); UROBILINOGEN,URINE 2+ (NORMAL)
[2022-03-16] MEDS: LAMICTAL TAB 100 MG PO SCH (19:49)
[2022-03-16] MEDS ORDERED: AMBIEN PO PRN (19:51)
[2022-03-16 19:52] LABS: APPEARANCE,URINE CLEAR (CLEAR); BACTERIA,URINE 1+ /HPF (NEGATIVE); COLOR,URINE PALE YELLOW (YELLOW); RBC,URINE 0-2 /HPF (0-3); SQUAMOUS EPITHELIAL CELL,UR MANY /HPF (NEGATIVE)
[2022-03-16] MEDS: PERCOCET TAB 5/325 MG PO PRN (20:20)
[2022-03-16] MEDS: CIPRO IV 400 MG PREMIX* 400 MG/200 ML IV.SOLN. IV SCH (20:50)
--- NOTE | 2022-03-17 03:05 | RAD ---
PROCEDURE: Acute Abdomen Series .HISTORY: Nausea, vomiting, diarrhea, and abdomen pain.TECHNIQUE: AP supine and upright abdomen with AP chest x-ray views .COMPARISON: 08/11/2021.TECHNICAL QUALITY: Satisfactory .FINDINGS:Chest x-ray shows heart size upper limits of normal. Lung irizarry are clear.No pneumoperitoneum.Some prominent small bowel loops mid left abdomen could be related to early obstruction or ileus.No organomegaly.No abnormal calcifications.No bony abnormality.IMPRESSION:1. Early obstruction or ileus and follow-up films may be helpful.2. Heart size upper limits of normal.Electronically signed by: Prasanth Wright (Mar 17, 2022 03:04:05)
[2022-03-17 04:43] LABS: BASOPHILS % (AUTO) 0.6 % (0.2-1.0); EOSINOPHILS # (AUTO) 0.1 x10^3/uL (0.0-0.2); EOSINOPHILS % (AUTO) 2.5 % (0.9-2.9); HEMOGLOBIN 11.7 g/dL (12.0-16.0); LYMPHOCYTES # (AUTO) 2.8 X10^3/uL (1.3-2.9); MEAN CORPUSCULAR HGB CONC 34.3 g/dL (33.0-35.0); MEAN CORPUSCULAR VOLUME 81.7 fL (80.0-100.0); MEAN PLATELET VOLUME 8.2 fL (7.4-11.0); MONOCYTES # (AUTO) 0.4 x10^3/uL (0.3-0.8); MONOCYTES % (AUTO) 6.8 % (0.0-13.0); NEUTROPHILS # (AUTO) 2.1 x10^3/uL (2.2-4.8); NEUTROPHILS % (AUTO) 38.1 % (42.0-75.0); RED BLOOD COUNT 4.16 X10^6/uL (3.5-5.4); RED CELL DISTRIBUTION WIDTH 13.6 % (11.6-16.5); WHITE BLOOD COUNT 5.5 X10^3/uL (3.6-10.0)
[2022-03-17 04:49] LABS: ALANINE AMINOTRANSFERASE 22 Units/L (12-78); ALBUMIN 3.3 g/dL (3.4-5.0); ALKALINE PHOSPHATASE 69 Units/L (46-116); ASPARTATE AMINO TRANSFERASE 17 Units/L (15-37); BLOOD UREA NITROGEN 8 mg/dL (7-18); CALCIUM 8.2 mg/dL (8.5-10.1); CARBON DIOXIDE 26.2 mmol/L (21-32); CHLORIDE 104 mmol/L (98-107); COR CA(FOR HYPOALB) 8.8 mg/dL (8.5-10.1); CREATININE 0.84 mg/dL (0.55-1.02); SODIUM 138 mmol/L (136-145); TOTAL PROTEIN 6.4 g/dL (6.4-8.2); eGFR NON BLACK RACES > 60 (>60)
[2022-03-17] MEDS ORDERED: POTASSIUM CHLORIDE LIQ 20 MEQ UDC PO PRN (05:03)
[2022-03-17] MEDS ORDERED: MICRO K EXTEN CAP 10 MEQ PO PRN (05:03)
[2022-03-17] MEDS ORDERED: KLOR-CON PO PRN (05:03)
[2022-03-17] MEDS ORDERED: POTASSIUM CHL 60 MEQ/NS 0.45% 500 ML IV PRN (05:03)
[2022-03-17] MEDS ORDERED: POTASSIUM CHL 40 MEQ/NS 0.45% 500 ML IV PRN (05:03)
[2022-03-17] MEDS ORDERED: K-RIDER 10 MEQ/NS 100 ML 10 MEQ/100 ML BAG IV PRN (05:03)
[2022-03-17] MEDS: K-DUR TAB 20 MEQ PO PRN ×2 (05:33→14:10)
[2022-03-17] MEDS ORDERED: NS 100 ML IV 100 ML ONE (08:27)
[2022-03-17] MEDS: CIPRO IV 400 MG PREMIX* 400 MG/200 ML IV.SOLN. IV SCH ×2 (08:28→20:15)
[2022-03-17] MEDS: PROTONIX INJ 40 MG VIAL IVP SCH ×2 (08:28→20:15)
[2022-03-17] MEDS ORDERED: TOPROL XL PO SCH (09:00)
[2022-03-17] MEDS ORDERED: ZESTRIL TAB 5 MG PO SCH (09:00)
[2022-03-17] MEDS ORDERED: MORPHINE SULFATE INJ 2 MG INJ ONE (09:11)
[2022-03-17] MEDS: MORPHINE SULFATE INJ 2 MG INJ IVP PRN ×2 (09:22→18:56)
[2022-03-17] MEDS: ZOFRAN INJ 4 MG VIAL IVP PRN ×2 (09:23→15:20)
[2022-03-17] MEDS: NS 1,000 ML IV 1,000 ML IV SCH (10:32)
[2022-03-17] MEDS: MAGNESIUM SULFATE 1 GRAM/100 mL PREMIX 1 G/100 ML BAG IV PRN ×2 (11:13→12:29)
[2022-03-17] MEDS: PERCOCET TAB 5/325 MG PO PRN ×2 (12:42→20:33)
[2022-03-17] MEDS: REGLAN INJ 10 MG VIAL IVP PRN ×2 (12:43→18:56)
[2022-03-17] MEDS: LAMICTAL TAB 100 MG PO SCH (20:15)
[2022-03-18] MEDS: ZOFRAN INJ 4 MG VIAL IVP PRN ×3 (00:06→23:55)
[2022-03-18] MEDS: MORPHINE SULFATE INJ 2 MG INJ IVP PRN ×5 (00:06→23:55)
[2022-03-18] MEDS: NS 1,000 ML IV 1,000 ML IV SCH ×4 (00:07→20:38)
[2022-03-18 06:30] LABS: BASOPHILS % (AUTO) 0.8 % (0.2-1.0); EOSINOPHILS # (AUTO) 0.1 x10^3/uL (0.0-0.2); EOSINOPHILS % (AUTO) 3.1 % (0.9-2.9); HEMATOCRIT 35.1 % (36.0-47.0); LYMPHOCYTES # (AUTO) 2.4 X10^3/uL (1.3-2.9); LYMPHOCYTES % (AUTO) 50.6 % (21.0-51.0); MEAN CORPUSCULAR HEMOGLOBIN 28.1 pg (27.0-34.0); MEAN CORPUSCULAR HGB CONC 34.2 g/dL (33.0-35.0); MEAN PLATELET VOLUME 8.2 fL (7.4-11.0); MONOCYTES # (AUTO) 0.4 x10^3/uL (0.3-0.8); MONOCYTES % (AUTO) 8.3 % (0.0-13.0); NEUTROPHILS # (AUTO) 1.7 x10^3/uL (2.2-4.8); NEUTROPHILS % (AUTO) 37.2 % (42.0-75.0); RED BLOOD COUNT 4.28 X10^6/uL (3.5-5.4); RED CELL DISTRIBUTION WIDTH 14.3 % (11.6-16.5); WHITE BLOOD COUNT 4.7 X10^3/uL (3.6-10.0)
[2022-03-18] MEDS: REGLAN INJ 10 MG VIAL IVP PRN (06:35)
[2022-03-18 06:42] LABS: ALANINE AMINOTRANSFERASE 21 Units/L (12-78); ALBUMIN 3.3 g/dL (3.4-5.0); ALKALINE PHOSPHATASE 71 Units/L (46-116); ASPARTATE AMINO TRANSFERASE 20 Units/L (15-37); BLOOD UREA NITROGEN 3 mg/dL (7-18); CALCIUM 8.2 mg/dL (8.5-10.1); CARBON DIOXIDE 22.4 mmol/L (21-32); CHLORIDE 106 mmol/L (98-107); COR CA(FOR HYPOALB) 8.8 mg/dL (8.5-10.1); CREATININE 0.79 mg/dL (0.55-1.02); MAGNESIUM 2.2 mg/dL (1.7-2.9); SODIUM 137 mmol/L (136-145); TOTAL PROTEIN 6.5 g/dL (6.4-8.2); eGFR NON BLACK RACES > 60 (>60)
[2022-03-18] MEDS: CIPRO IV 400 MG PREMIX* 400 MG/200 ML IV.SOLN. IV SCH ×2 (08:31→20:37)
[2022-03-18] MEDS: PROTONIX INJ 40 MG VIAL IVP SCH ×2 (08:31→20:37)
[2022-03-18] MEDS ORDERED: D5 LR 1,000 ML 1,000 ML IV ONE (12:37)
[2022-03-18] MEDS ORDERED: DIPRIVAN VIAL 20 ML ONE ×2 (14:11→14:33)
[2022-03-18] MEDS ORDERED: KETAMINE HCL ONE (14:19)
[2022-03-18] MEDS: REGLAN INJ 10 MG VIAL IVP SCH ×2 (18:15→20:37)
[2022-03-18] MEDS: LAMICTAL TAB 100 MG PO SCH (20:37)
[2022-03-18] MEDS: PERCOCET TAB 5/325 MG PO PRN (20:38)
[2022-03-19] MEDS: NS 1,000 ML IV 1,000 ML IV SCH ×2 (04:38→11:00)
--- NOTE | 2022-03-19 05:41 | RAD ---
PROCEDURE: Acute Abdomen Series .HISTORY: ABDOMINAL PAIN .TECHNIQUE: AP supine and upright abdomen with AP chest x-ray views .COMPARISON: 08/11/2021.TECHNICAL QUALITY: Satisfactory .FINDINGS:Clear lungs and normal size heart.Scattered gas and feces in the colon without distention. No obstruction or ileus.No organomegaly.No abnormal calcifications.No bony abnormality.IMPRESSION:1. Nonspecific bowel gas pattern.2. No active cardiopulmonary disease.Electronically signed by: Prasanth Wright (Mar 19, 2022 05:40:27)
[2022-03-19 06:18] LABS: BASOPHILS # (AUTO) 0.1 X10^3/uL (0.0-0.1); BASOPHILS % (AUTO) 1.2 % (0.2-1.0); EOSINOPHILS # (AUTO) 0.1 x10^3/uL (0.0-0.2); EOSINOPHILS % (AUTO) 2.8 % (0.9-2.9); HEMOGLOBIN 11.4 g/dL (12.0-16.0); LYMPHOCYTES # (AUTO) 2.4 X10^3/uL (1.3-2.9); LYMPHOCYTES % (AUTO) 55.8 % (21.0-51.0); MEAN CORPUSCULAR HEMOGLOBIN 28.3 pg (27.0-34.0); MEAN CORPUSCULAR HGB CONC 34.4 g/dL (33.0-35.0); MEAN CORPUSCULAR VOLUME 82.2 fL (80.0-100.0); MONOCYTES # (AUTO) 0.3 x10^3/uL (0.3-0.8); MONOCYTES % (AUTO) 7.7 % (0.0-13.0); NEUTROPHILS # (AUTO) 1.4 x10^3/uL (2.2-4.8); NEUTROPHILS % (AUTO) 32.5 % (42.0-75.0); RED BLOOD COUNT 4.01 X10^6/uL (3.5-5.4); RED CELL DISTRIBUTION WIDTH 13.8 % (11.6-16.5); WHITE BLOOD COUNT 4.3 X10^3/uL (3.6-10.0)
[2022-03-19 06:27] LABS: ALANINE AMINOTRANSFERASE 25 Units/L (12-78); ALKALINE PHOSPHATASE 68 Units/L (46-116); ASPARTATE AMINO TRANSFERASE 17 Units/L (15-37); BLOOD UREA NITROGEN 4 mg/dL (7-18); CALCIUM 7.9 mg/dL (8.5-10.1); CARBON DIOXIDE 26.9 mmol/L (21-32); CHLORIDE 107 mmol/L (98-107); COR CA(FOR HYPOALB) 8.7 mg/dL (8.5-10.1); CREATININE 0.81 mg/dL (0.55-1.02); SODIUM 139 mmol/L (136-145); eGFR NON BLACK RACES > 60 (>60)
[2022-03-19] MEDS: PROTONIX INJ 40 MG VIAL IVP SCH (08:03)
[2022-03-19] MEDS: REGLAN INJ 10 MG VIAL IVP SCH ×2 (08:03→13:22)
[2022-03-19] MEDS: CIPRO IV 400 MG PREMIX* 400 MG/200 ML IV.SOLN. IV SCH (08:03)
[2022-03-19] MEDS: MORPHINE SULFATE INJ 2 MG INJ IVP PRN (08:04)
[2022-03-19] MEDS: ZOFRAN INJ 4 MG VIAL IVP PRN (08:04)
--- NOTE | 2022-03-19 08:05 | MRI ---
HISTORYN/V, ABD PAIN. Liver lesionSTUDYMRI ABDOMEN W/WO IV CONTRASTCOMPARISONCT 03/03/2022TECHNIQUEMRI of the abdomenwithout and with IV contrast is performed using standard sequences in multiple planes. 20 cc MultiHance IV contrast.FINDINGSThere is a lesion in the left hepatic lobe that has mild increased T2 signal. It has loss of signal on out of phase imaging and is probable area of focal fatty infiltration. It measures 4.4 x 2.5 cm in axial dimensions. There is mild heterogeneous enhancement of this area following contrast administration. There is no mass effect on the adjacent vasculature.Three simple cysts are seen in the left kidney. Right kidney appears normal. No adrenal nodules are seen. Abdominal aorta is normal in size. Pancreas appears normal.Prior cholecystectomy. Common bile duct is normal in size. No ductal stone or stricture is seen. There are a few very tiny cysts in the liver. Spleen is normal in size.IMPRESSIONAbnormal signal in the left hepatic lobe appears to be focal fatty infiltration.A few very tiny simple appearing hepatic cysts are seen with small simple appearing left renal cysts.Electronically signed by: Leonel Diaz (Mar 19, 2022 08:04:42)
[2022-03-19 12:27] VITALS: BP 131/81
[2022-03-19] MEDS: PERCOCET TAB 5/325 MG PO PRN (13:43)
[2022-03-24 15:45] LABS: HEPATITIS B SURFACE ANTIGEN Negative (Negative)
--- NOTE | 2022-04-28 00:34 | PCM.DCPLAN ---
Discharge Plan - Discharge Plan Hospital Course: Admit date 03/16/22 Discharge date 03/19/22 DOS 03/19/22 Admit diagnosis (1) Intractable nausea and vomiting (2) Liver mass, left lobe (3) Ascites (4) Abdominal pain (5) Acute hypokalemia Discharge diagnosis INTRACTABLE NAUSEA AND VOMITING, LIVER MASS RULED OUT, INTRACTABLE ABDOMINAL PAIN, ACUTE HYPOKALEMIA, GASTRITIS Hospital Course PT IS 46WF DIRECT ADMIT FROM DR WHITING OFFICE WITH ABDOMINAL PAIN, DISTENTION, N/V/D. PT WAS SEEN IN ER 03/03/22, HAD CT ABDOMEN AND PELVIS WHICH REVEALED Low-density nodular mass in the left lobe of the liver measures about 3 cm. Recommend MRI liver protocol For additional evaluation. This might be a hemangioma. PT WAS GIVEN FLAGYL AND REGLAN WITHOUT IMPROVEMENT. PT ADMITTED FOR TREATMENT OF ACUTE ILLNESS AND MRI ABD. MRI ABD PERFORMED WITHOUT ACUTE FINDINGS; NO MASS FOUND, SEE REPORT. PATIENT WAS TREATED WITH IV ABX AND HYDRATION. DR. WILLIAM WAS CONSULTED. PATIENT UNDERWENT EGD. GASTRITIS WAS FOUND. PATIENTS SYMPTOMS IMPROVED. PATIENT WAS ABLE TO TOLERATE FOOD AND FLUIDS. LABS WERE WITHOUT ACUTE FINDINGS AT DISCHARGE WELL IMAGING. SEE DISCHARGE MED REC, LABS, AND IMAGING REPORTS FOR DETAILS. Discharge time spent >35 mins. Disposition: 01 HOME, SELF-CARE Condition: Stable Health Concerns: Post Hospitalization: new medications and changes needed to prevent readmission or further decline. Pt educated and given instructions on all concerns. Care Plan Goals: Problem: Pain/Alteration in Comfort Goal: Improve/ Resolve Pain; Achieve Pain Tolerance Instructions: Take pain medications as prescribed. Contact your primary care provider if your pain is unrelieved or worsens. Follow up with primary care provider as directed. Plan of Treatment: Continue with present treatment and follow up plan. Pt is to keep follow up appointment as instructed and take medications as ordered. Prescriptions: New dicyclomine [Bentyl] 10 mg/mL Solution 10 mg IM BID Qty: 60 RF: 0 Transmission Status: Received by [facility] pantoprazole [Protonix] 40 mg Tablet,Delayed Release (Dr/Ec) 40 mg PO BID Qty: 60 RF: 0 Transmission Status: Received by [facility] Continued Aimovig Autoinjector 140 mg/mL auto-injector 140 mg SUBCUT MONTHLY atorvastatin 10 mg tablet 10 mg PO HS baclofen 10 mg tablet 10 mg PO TID PRN diphenhydramine HCl [Benadryl] 25 mg Capsule 25 mg PO Q6H escitalopram oxalate 10 mg Tablet 10 mg PO DAILY estradiol 2 mg tablet 2 mg PO DAILY famotidine [Pepcid] 20 mg Tablet 20 mg PO BID fluoxetine 40 mg capsule 40 mg PO DAILY hydroxyzine pamoate 25 mg capsule 25 mg PO TID PRN (Reason: Anxiety) hydroxyzine pamoate [Vistaril] 25 mg capsule 25 mg PO TID ketorolac 10 mg Tablet 10 mg PO PRN PRN lamotrigine 100 mg tablet 100 mg PO BID losartan 50 mg tablet 50 mg PO DAILY metoclopramide HCl [Reglan] 10 mg Tablet 10 mg PO Q6H metoprolol tartrate [Lopressor] 50 mg Tablet 25 mg PO HS omeprazole 20 MG capsule,delayed release(DR/EC) 40 mg PO DAILY ondansetron HCl 4 mg tablet 4 mg PO Q6H PRNQty: 20 RF: 0 oxycodone-acetaminophen 10-325 mg tablet 1 tab PO Q6H MDD 4 PRNQty: 28 RF: 0 prazosin 2 mg capsule 4 mg PO HS quetiapine [Seroquel] 300 MG tablet 600 mg PO HS ropinirole 1 mg tablet 1 mg PO HS sumatriptan succinate 100 mg Tablet 100 mg PO PRN PRN (Reason: Migraine Headache) Victoza 2-Willie 0.6 mg/0.1 mL (18 mg/3 mL) pen injector 1.2 mg SUBCUT DAILY - Orders to Discharge Patient Discharge Orders: Discharge (Routine); Ordered 03/19/22 Ordered By: Latanya Jesus - Follow ups/Referrals Follow ups/Referrals: SUSANA VENTURA [Primary Care Provider] - 1 WEEK TREVON WILLIAM [STAFF PHYSICIAN] - 04/12/22 1:00 pm - Instructions Instructions: Chronic Migraine Headache, [id number], Flank Pain, Adult, [id number], Abdominal Pain, Adult, [id number], Hepatomegaly, [id number] Forms: Excuse From Work or School, Precautions for COVID19, [facility], Patient Portal, Social Distancing Print Language: ROMANIAN
== END 2022-03-19 15:10 | disposition home or self-care (01) ==
LOC: MED/SURG
PROVIDERS: ADMIT Internal Medicine; ATTEND Internal Medicine
DX: R16.0 Hepatomegaly, not elsewhere classified; E87.6 Hypokalemia; Z20.822 Contact with and (suspected) exposure to COVID-19; R94.31 Abnormal electrocardiogram [ECG] [EKG]; E78.2 Mixed hyperlipidemia; Z87.19 Personal history of other diseases of the digestive system; I10 Essential (primary) hypertension; R10.13 Epigastric pain; R19.7 Diarrhea, unspecified; R10.84 Generalized abdominal pain; K29.00 Acute gastritis without bleeding; K21.00 Gastro-esophageal reflux disease with esophagitis, without bleeding